=== PATIENT | male | born 1995 | race Caucasian/White ===

== ENCOUNTER 2022-06-14 15:06 | Emergency (ER) | payer MEDICAID ==
[~2022-06-14] VITALS: Ht 172.7 cm; Wt 88.6 kg
[~2022-06-14 15:06] MED LIST: IBUP-1984 PO
[2022-06-14 15:09] VITALS: BP 138/80
[2022-06-14] MEDS ORDERED: TETanus/Pertussis (Acell)/Diphther VAC/PF (Tdap-Adult) 0.5ml syringe IMVAC ONE (15:40)
[2022-06-14] MEDS ORDERED: bacitracin 15gm ointment TP ONE (15:40)
[2022-06-14] MEDS ORDERED: LIDOcaine 1% 30ml preserv. free vial IJ ONE (15:40)
[2022-06-14] MEDS ORDERED: IBUP-1986 PO (16:01)
[2022-06-14] MEDS ORDERED: SULF1TAB49 PO (16:01)
[2022-06-14] MEDS ORDERED: sulfamethoxazole/trimethoprim DS (800/160mg) tablet PO ONE (16:25)
== END 2022-06-14 16:42 | disposition home or self-care (01) ==
LOC: ER 15:06
DX: L03.012 Cellulitis of left finger (principal); F12.10 Cannabis abuse, uncomplicated; Z79.899 Other long term (current) drug therapy; Z79.1 Long term (current) use of non-steroidal anti-inflammatories (NSAID)
CPT/HCPCS: 10060; 73140; 90471; 90715; 99283; A6449

== ENCOUNTER 2023-05-23 14:05 | Emergency (ER) | payer MEDICAID ==
[~2023-05-23] VITALS: Ht 175.3 cm; Wt 97.7 kg
[~2023-05-23 14:05] MED LIST changes: +IBUP-1986 PO
[2023-05-23 15:24] VITALS: BP 122/71; PULSE 74; RESP 17; TEMP 98.6; O2SAT 98
[2023-05-24] MEDS ORDERED: AMOX-117 PO (14:37)
[2023-05-24] MEDS ORDERED: NAPR-56 PO (14:37)
== END 2023-05-23 16:08 | disposition home or self-care (01) ==
LOC: ER 14:06
DX: F15.90 Other stimulant use, unspecified, uncomplicated (principal); F12.90 Cannabis use, unspecified, uncomplicated; F11.90 Opioid use, unspecified, uncomplicated; Z59.00 Homelessness unspecified; Z79.899 Other long term (current) drug therapy
CPT/HCPCS: 99283

== ENCOUNTER 2023-05-24 14:10 | Emergency (ER) | payer MEDICAID ==
[~2023-05-24] VITALS: Ht 172.7 cm; Wt 84.3 kg
[2023-05-24 14:32] VITALS: BP 141/75; PULSE 101; RESP 16; TEMP 97.7; O2SAT 97
[2023-05-24] MEDS ORDERED: NAPR-56 PO (14:37)
[2023-05-24] MEDS ORDERED: AMOX-117 PO (14:37)
== END 2023-05-24 14:54 | disposition home or self-care (01) ==
LOC: ER 14:11
DX: L03.211 Cellulitis of face (principal); F12.10 Cannabis abuse, uncomplicated
CPT/HCPCS: 99283